=== PATIENT | female | born 1940 | race Caucasian/White ===

== ENCOUNTER → 2016-05-29 | Outpatient (CLI) | payer OTHER ==
--- NOTE | 2016-05-29 17:13 | DX ---
Chest, Two Views - May 29, 2016 at 1537 hours History: Asthma, dyspnea Comparison: December 2013 Findings: Cardiac silhouette is within normal range. Mid and lower mild to moderate compression fract ures with at least 3 fractures identified, new since the previous study. No pneumonia, congestive hea rt failure, pleural effusion, or pneumothorax. Coronary artery stents. Impression: 1. No acute pneumonia. 2. Mid to lower compression fractures. Consider DEXA bone scan evaluation for osteoporosis.
== END ==
LOC: FIMAGING 15:30
PROVIDERS: ATTEND Specialist
DX: J45.909 Unspecified asthma, uncomplicated (principal); R06.00 Dyspnea, unspecified; M48.50XA Collapsed vertebra, not elsewhere classified, site unspecified, initial encounter for fracture

== ENCOUNTER → 2016-05-29 | Outpatient (CLI) | payer OTHER | LOC: BHFA 14:00 | PROVIDERS: ATTEND Internal Medicine Cardiovascular Disease | DX: R01.1 Cardiac murmur, unspecified (principal); I25.10 Atherosclerotic heart disease of native coronary artery without angina pectoris; E78.5 Hyperlipidemia, unspecified ==

== ENCOUNTER → 2016-06-08 | Outpatient (CLI) | payer OTHER | LOC: BHFA 14:00 | PROVIDERS: ATTEND Internal Medicine Interventional Cardiology | DX: R01.1 Cardiac murmur, unspecified (principal); I25.10 Atherosclerotic heart disease of native coronary artery without angina pectoris ==

== ENCOUNTER → 2017-04-05 | Outpatient (CLI) | payer OTHER | LOC: FIMAGING 10:15 | PROVIDERS: ATTEND Family Medicine | DX: Z12.31 Encounter for screening mammogram for malignant neoplasm of breast (principal); Z85.3 Personal history of malignant neoplasm of breast | CPT/HCPCS: G0202 ==

== ENCOUNTER 2017-10-21 10:28 | Emergency (ER) | payer OTHER ==
--- NOTE | 2017-10-21 11:14 | EDPHY ---
General Time Seen by Provider: 10/21/17 11:05 Narrative: CHIEF COMPLAINT: Finger laceration HISTORY OF PRESENT ILLNESS: Patient presents with complaints of finger laceration. This occurred of the left index finger. This happened just prior to arrival while working in the garden. She was using garden radhika in section only cut the tip of the finger. Moderate bleeding that has not stopped. Moderately painful when she touches or moves the finger. Minimally painful at rest. No numbness or tingling. No pulsatile bleeding. Full no radiating pain. No neuro complaints. No other associated complaints or modifying factors. TIME OF INJURY: Less than 1 hr ago TETANUS STATUS: Less than 4 years ago MEDICAL/SURGICAL/SOCIAL HISTORY: Uncomplicated medical REVIEW OF SYSTEMS: Ten systems reviewed and are negative unless otherwise noted in the HPI EXAMINATION General Appearance: Alert, no distress Head: normocephalic, atraumatic Cardiovascular: Pulses normal throughout. Brisk cap refill Neurological: A&O, sensory symmetric, strength symmetric Skin: Warm and dry, no rash. Left index finger tip partial avulsion. No involvement of the nail and nail bed. Pulsatile bleeding. No foreign body or bony injury. Extremities: Tenderness of the area left finger laceration. Full flexion extension of the index finger without deficit. DIFFERENTIAL DIAGNOSES: Including but not limited to laceration, partial avulsion, laceration with tendon injury, laceration with open fracture. MDM: 11:13 a.m. Left index finger laceration that consist of partial avulsion of finger tip that is venous bleeding. No pulsatile bleeding. No tendon injury. I have administered a digital block for irrigation. She will need surgifoam for hemostasis. 11:50 a.m. Patient re-evaluated. Wound has been irrigated and foam is been applied. Good hemostasis thus far. She is in a tube gauze dressing and will monitor for hemostasis. 12:20 p.m. Patient re-evaluated. Good hemostasis with no bleeding at all. Her digital block is still in place and she is feeling well. We discussed wound care including keeping the current dressing in place for 48 hr. We discussed daily light irrigation and bacitracin application. She will need see primary care physician and/or hand surgeon for further care. ED precautions for signs of infection as discussed. Discharged in stable condition. SUPERVISION: This patient was independently evaluated without direct involvement of or examination by the attending physician. ED Precautions: Worsening pain. Erythema, edema, cyanosis, pallor, paresthesia or anesthesia. - Diagnostics Imaging Results: Imaging Impressions Finger X-Ray 10/21/17 11:14 Impression: 1. Soft tissue injury involving the left second digit with no associated acute osseous abnormality identified. 2. Prominent degenerative changes and osseous demineralization are noted. - History Smoking Status: Never smoked - Objective Vital Signs: Initial Vital Signs Temperature (C) 97.5 F 10/21/17 10:43 Heart Rate 55 L 10/21/17 10:43 Respiratory Rate 16 10/21/17 10:43 Blood Pressure 154/77 H 10/21/17 10:43 O2 Sat (%) 99 10/21/17 10:43 O2 Delivery Mode Room Air Allergies/Adverse Reactions: No Known Allergies Allergy (Verified 10/21/17 10:42) Home Medications: Medication Instructions Recorded Aspirin [Aspirin 81mg (*)] 81 mg PO DAILY 08/11/12 Atorvastatin Calcium [Lipitor 20 20 mg PO HS 08/11/12 mg (*)] Calcium Citrate W/Vit D [Citracal 315 mg PO DAILY@1200 08/11/12 + D] Cetirizine [ZyRTEC] 10 mg PO HS 08/11/12 Cholecalciferol Vit D3 [Vitamin D3 1,000 units PO DAILY@1200 08/11/12 (*)] Clopidogrel Bisulfate [Plavix (*)] 75 mg PO DAILY 08/11/12 Fluticasone/Salmeterol [Advair 1 each IH DAILY 08/11/12 250-50 Diskus] Levothyroxine [Synthroid 88 mcg 88 mcg PO HS 08/11/12 (*)] [place]-3 Fatty Acids/Fish Oil [Fish 1 each PO DAILY 08/11/12 Oil 1,200 mg Softgel] carBAMazepine [Tegretol] 200 mg PO TID 08/11/12 Hydrocodone/APAP 5/325 [[place] 1 - 2 tab PO Q6 PRN #30 tab 03/19/14 5/325 (*)] Metaxalone [Skelaxin 800 mg (*)] 800 mg PO TID #30 tab 03/19/14 Sennosides/Docusate Sodium 1 - 2 tab PO BID #0 tab 03/19/14 [Senokot-S] Departure - Departure Disposition: Home, Routine, Self-Care Clinical Impression: Avulsion of fingertip Qualifiers: Encounter type: initial encounter Qualified Code(s): S61.209A - Unspecified open wound of unspecified finger without damage to nail, initial encounter Condition: Good Instructions: Skin Avulsion (ED) Additional Instructions: 1. Keep your current dressing in place for 48 hr and then removed. 2. Once daily wash the wound with antibacterial soap, and reapply the dressing. 3. Return here for any signs of infection including redness, warmth, fever, difficulty bending or straightening the finger Referrals: Mally Ashby MD [Primary Care Provider] - As per Instructions Chema Dixon MD [Medical Doctor] - As per Instructions (As needed)
[2017-10-21 12:22] VITALS: BP 144/74
== END 2017-10-21 12:22 | disposition home or self-care (01) ==
DX: S61.201A Unspecified open wound of left index finger without damage to nail, initial encounter (principal); Z79.82 Long term (current) use of aspirin; W26.8XXA Contact with other sharp object(s), not elsewhere classified, initial encounter; Y92.007 Garden or yard of unspecified non-institutional (private) residence as the place of occurrence of the external cause; Y99.8 Other external cause status; Y93.89 Activity, other specified

== ENCOUNTER 2017-10-23 20:14 | Emergency (ER) | payer OTHER ==
--- NOTE | 2017-10-23 21:13 | EDPHY ---
H & P Time Seen by Provider: 10/23/17 21:09 HPI/ROS: Chief complaint. Finger laceration HPI. 77-year-old female with avulsion to the tip of her left index finger 2 days ago on October 21. Bleeding was difficult to control and patient had gel foam applied to control the bleeding. Today she was taking off the bandage and dressing and pulling away the Gel-Foam and it started bleeding. She was unable to control the bleeding at home. No other complaints. No re-injury ROS Constitutional. no fever/chills, no weakness Eyes. no problems with vision ENT. no sore throat, no nasal drainage Cardiovascular. no chest pain Respiratory. no shortness of breath, no cough Abdominal. no abdominal pain, no nausea/vomiting, no diarrhea . no problems urinating MS. no calf pain/swelling, no neck/back pain, no joint pain Skin. Bleeding laceration to the tip of the left index finger Lymph. no swollen glands Neuro. no headache, no dizziness, no difficulty walking or with speech Past Medical/Surgical History: Past medical history is significant coronary artery disease, Epsom epilepsy, cardiac stents, asthma, osteoporosis Social History: , nonsmoker, no alcohol Smoking Status: Never smoked Physical Exam: General Appearance: Alert pleasant well-developed female mild distress vital signs are stable Eyes: Pupils equal and round no pallor or injection. ENT, Mouth: Mucous membranes are moist. Respiratory: There are no retractions, lungs are clear to auscultation. Cardiovascular: Regular rate and rhythm. Gastrointestinal: Abdomen is soft and nontender, no masses, bowel sounds normal. Neurological: Awake and alert, sensory and motor exams grossly normal. Skin: Warm and dry, no rashes. Musculoskeletal: Neck is supple nontender. Extremities left tip of index finger now has bleeding controlled. No evidence for infection Psychiatric: Patient is oriented X 3, there is no agitation. Constitutional: Initial Vital Signs Temperature (C) 36.6 C 10/23/17 20:19 Heart Rate 58 L 10/23/17 20: Respiratory Rate 18 10/23/17 20:19 Blood Pressure 145/69 H 10/23/17 20:19 O2 Sat (%) 94 10/23/17 20: O2 Delivery Mode Room Air Allergies/Adverse Reactions: No Known Allergies Allergy (Verified 10/21/17 10:42) Home Medications: Medication Instructions Recorded Aspirin [Aspirin 81mg (*)] 81 mg PO DAILY 08/11/12 Atorvastatin Calcium [Lipitor 20 20 mg PO HS 08/11/12 mg (*)] Calcium Citrate W/Vit D [Citracal 315 mg PO DAILY@1200 08/11/12 + D] Cetirizine [ZyRTEC] 10 mg PO HS 08/11/12 Cholecalciferol Vit D3 [Vitamin D3 1,000 units PO DAILY@1200 08/11/12 (*)] Clopidogrel Bisulfate [Plavix (*)] 75 mg PO DAILY 08/11/12 Fluticasone/Salmeterol [Advair 1 each IH DAILY 08/11/12 250-50 Diskus] Levothyroxine [Synthroid 88 mcg 88 mcg PO HS 08/11/12 (*)] [place]-3 Fatty Acids/Fish Oil [Fish 1 each PO DAILY 08/11/12 Oil 1,200 mg Softgel] carBAMazepine [Tegretol] 200 mg PO TID 08/11/12 Hydrocodone/APAP 5/325 [[place] 1 - 2 tab PO Q6 PRN #30 tab 03/19/14 5/325 (*)] Metaxalone [Skelaxin 800 mg (*)] 800 mg PO TID #30 tab 03/19/14 Sennosides/Docusate Sodium 1 - 2 tab PO BID #0 tab 03/19/14 [Senokot-S] Medical Decision Making Procedures: Wound is cleaned and bandaged ED Course/Re-evaluation: Patient and I discussed wound care as well as criteria for return importance of follow-up and further evaluation. She expresses understanding and agreement Differential Diagnosis: I considered retained foreign body, infection, for bleeding control Departure - Departure Disposition: Home, Routine, Self-Care Clinical Impression: Laceration Condition: Good Instructions: Laceration Without Closure (ED) Additional Instructions: Leave the dressing or bandage on for 2 days and then gently remove Return for signs of infection or further bleeding. Referrals: Mally Ashby MD [Primary Care Provider] - As per Instructions
[2017-10-23 21:46] VITALS: BP 140/73
== END 2017-10-23 21:46 | disposition home or self-care (01) ==
DX: S61.211D Laceration without foreign body of left index finger without damage to nail, subsequent encounter (principal); I25.10 Atherosclerotic heart disease of native coronary artery without angina pectoris; J45.909 Unspecified asthma, uncomplicated; Z79.82 Long term (current) use of aspirin; Z95.0 Presence of cardiac pacemaker; X58.XXXD Exposure to other specified factors, subsequent encounter